=== PATIENT | male | born 2000 ===

== ENCOUNTER 2024-02-26 00:20 | Emergency (ER) | payer OTHER, SELFPAY ==
[2024-02-26 00:24] VITALS: BP 125/69; PULSE 108; RESP 18; TEMP 36.8; O2SAT 98; BMI 29.6
== END 2024-02-26 01:17 | disposition left against medical advice (07) ==
PROVIDERS: Emergency Provider Emergency Medicine; PCP Nurse Practitioner Family
DX: F12.90 Cannabis use, unspecified, uncomplicated (principal)
CPT/HCPCS: 99281